=== PATIENT | male | born 1985 | race Caucasian/White ===

== ENCOUNTER 2020-11-29 23:21 | Emergency (ER) | payer OTHER ==
[~2020-11-29 23:21] MED LIST: TORADOL 10 MG T10 MG PO
== END 2020-11-30 01:06 | disposition home or self-care (01) ==
LOC: ER1 23:21
DX: U07.1 COVID-19 (principal); Z79.01 Long term (current) use of anticoagulants
CPT/HCPCS: 99283; U0002

== ENCOUNTER 2020-12-05 08:23 | Emergency (ER) | payer OTHER ==
[2020-12-05 09:18] LABS: HEMOGLOBIN 14.7 gm/dl (14.0-17.5); RED BLOOD COUNT 4.97 M/UL (4.20-5.50); WHITE BLOOD COUNT 3.6 K/UL (4.5-11.0)
[2020-12-05 09:40] LABS: BUN/CREATININE RATIO 9 (0-10)
[2020-12-05] MEDS ORDERED: ZOFRAN ODT 4 MG4 MG PO (10:49)
[2020-12-05] MEDS ORDERED: IBUPROFEN800 MG PO (10:49)
[2020-12-05] MEDS ORDERED: PROAIR DIGIHAL90 MCG INH (10:49)
== END 2020-12-05 11:00 | disposition home or self-care (01) ==
LOC: ER1 08:23
PROVIDERS: Emergency Medicine
DX: U07.1 COVID-19 (principal); A08.4 Viral intestinal infection, unspecified
CPT/HCPCS: 80053; 85025; 96374; 96375; 99284; J1885; J2405; J7030

== ENCOUNTER 2020-12-11 15:16 | Emergency (ER) | payer OTHER ==
[~2020-12-11 15:16] MED LIST changes: +IBUPROFEN800 MG PO; +PROAIR DIGIHAL90 MCG INH; +ZOFRAN ODT 4 MG4 MG PO
[2020-12-11 16:23] LABS: HEMOGLOBIN 13.4 gm/dl (14.0-17.5); RED BLOOD COUNT 4.5 M/UL (4.20-5.50)
[2020-12-11 17:07] LABS: BUN/CREATININE RATIO 11 (0-10)
== END 2020-12-11 18:30 | disposition left against medical advice (07) ==
LOC: ER1 15:16
PROVIDERS: Family Medicine
DX: Z53.21 Procedure and treatment not carried out due to patient leaving prior to being seen by health care provider (principal)
CPT/HCPCS: 80053; 83615; 85025; 86140

== ENCOUNTER → 2021-06-09 | Outpatient (CLI) | payer BC | LOC: HEART 5 05-28 09:00 | DX: R07.9 Chest pain, unspecified (principal); R06.02 Shortness of breath; R00.2 Palpitations; I08.1 Rheumatic disorders of both mitral and tricuspid valves | CPT/HCPCS: 93306 ==

== ENCOUNTER → 2021-06-30 | Outpatient (CLI) | payer BC | LOC: HEART 5 05-20 07:30 | DX: R07.9 Chest pain, unspecified (principal); R06.02 Shortness of breath | CPT/HCPCS: 78452; A9502 ==